=== PATIENT | male | born 1970 | race Caucasian/White ===

== ENCOUNTER 2024-05-26 06:07 | Day surgery (SDC) | payer BC, SELFPAY ==
[2024-05-26] VITALS (8 sets, daily range): BP systolic 131–161; BP diastolic 84–103; BMI 27.9
[2024-05-26] MEDS: NORMOSOL-R/PLASMALYTE-A 1000 IV (06:35)
[2024-05-26] MEDS: TYLENOL 1000 MG PO (07:03)
[2024-05-26] MEDS: DEMEROL 12.5 MG IV (08:55)
[2024-05-26] MEDS: ROXICODONE 5 MG PO (09:49)
== END 2024-05-26 10:15 | disposition home or self-care (01) ==
LOC: SDS 06:07
PROVIDERS: ATTENDING PHYSICIAN Orthopaedic Surgery
DX: S83.281A Other tear of lateral meniscus, current injury, right knee, initial encounter (principal); X58.XXXA Exposure to other specified factors, initial encounter; M17.11 Unilateral primary osteoarthritis, right knee; M23.41 Loose body in knee, right knee; M94.261 Chondromalacia, right knee; M65.90 Unspecified synovitis and tenosynovitis, unspecified site
CPT/HCPCS: 29881